=== PATIENT | female | born 1990 | race Caucasian/White ===

== ENCOUNTER 2022-12-10 08:34 | Outpatient (CLI) | payer BC, SELFPAY ==
--- NOTE | 2022-12-10 08:45 | CRLHL7_ITS ---
For Patients: As a result of the Cures Act, medical imaging exams and procedure reports are released immediately into your electronic medical record. You may view this report before your referring provider. If you have questions, please contact your health care provider. INDICATION: First trimester scan, establish dates. COMPARISON: None. TECHNIQUE: Real-time bonilla-scale imaging of the pelvis was performed. FINDINGS: Sonographic imaging demonstrates a single living intrauterine gestation. The embryo demonstrates a cardiac rate measuring 99 beats per minute. The embryo`s crown-rump length measurement of 0.36 cm corresponds to a gestational age of 6 weeks 0 days with a sonographic due date of 08/05/2023. There is a normal-appearing yolk sac. There are no gross abnormalities noted within the embryo at this early state of development. The gestational sac has a normal appearance. There is no evidence of a perigestational hemorrhage. The amount of fluid within the sac appears appropriate for gestational age. The cervix is closed. The myometrium appears normal. The ovaries are of normal size. There are no suspicious fluid collections noted in the cul-de-sac. IMPRESSION: Single living intrauterine with sonographic gestational age 6 weeks 0 days and sonographic due date 08/05/2023. heart rate is slightly low at 99 beats per minute. Follow-up in 2 weeks suggested. Dictated by Mtat Delatorre MD @ 12/10/2022 10:14:13 AM (Electronically Signed)
== END 2022-12-10 08:35 | disposition home or self-care (01) ==
LOC: US 08:36
PROVIDERS: PCP Physician Assistant Medical; Visit Provider Advanced Practice Midwife
DX: Z34.91 Encounter for supervision of normal pregnancy, unspecified, first trimester (principal); Z3A.08 8 weeks gestation of pregnancy
CPT/HCPCS: 76817

== ENCOUNTER 2022-12-24 07:22 | Outpatient (CLI) | payer BC, SELFPAY ==
--- NOTE | 2022-12-24 07:15 | CRLHL7_ITS ---
For Patients: As a result of the Cures Act, medical imaging exams and procedure reports are released immediately into your electronic medical record. You may view this report before your referring provider. If you have questions, please contact your health care provider. OB ULTRASOUND, 12/24/2022 INDICATION: Follow up first trimester obstetrical ultrasound. Low heart rate. TECHNIQUE: Transabdominal obstetrical ultrasound. COMPARISON: 12/10/2022. OSMIN by first US: 08/05/2022. GA: 8 w, 0 d. Previous US: Yes. OSMIN by US: 08/05/2022. GA: 6 w, 0 d. CRL: 1.7 cm. 8 w 1 d. OSMIN: 08/04/2023. FHR: 165 BPM. Gestational sac: 2.9 cm. Appears within normal limits. Yolk sac: 3.0 mm. Appears within normal limits. Right ovary: Within normal limits. 3.6 x 1.5 x 1.9 cm. Left ovary: Within normal limits. 3.8 x 2.1 x 1.9 cm. FINDINGS: Single living intrauterine with a crown-rump length of 1.74 cm corresponding to an 8 week 1 day gestation with a sonographic due date of 08/04/2023. heart rate 165 beats per minute. Normal yolk sac. Mild heterogeneous endometrium surrounding the gestational sac of uncertain and probably doubtful significance. The right ovary measures 3.6 x 1.5 x 1.9 cm. The left ovary measures 3.8 x 2.1 x 1.9 cm. IMPRESSION: Single living intrauterine with a crown-rump length corresponding to an 8 week 1 day gestation with a sonographic due date of 08/04/2023. heart rate 165 beats per minute. Normal yolk sac measuring 3 mm. MARQUITA ROPER M.D. Transcribed: 9:55 a.m. [email or web address] JR/Dictated by: Marquita Roper MD @ 12/24/2022 8:55:00 AM (Electronically Signed)
== END 2022-12-24 07:23 | disposition home or self-care (01) ==
LOC: US 07:23
PROVIDERS: PCP Physician Assistant Medical; Visit Provider Advanced Practice Midwife
DX: O36.8310 Maternal care for abnormalities of the fetal heart rate or rhythm, first trimester, not applicable or unspecified (principal); Z3A.08 8 weeks gestation of pregnancy
CPT/HCPCS: 76817; 86592; 86703; 86762; 86787; 86803; 86850; 86900; 86901; 87086; 87340

== ENCOUNTER 2023-03-18 08:17 | Outpatient (CLI) | payer BC, SELFPAY ==
--- NOTE | 2023-03-18 08:15 | CRLHL7_ITS ---
For Patients: As a result of the Century Cures Act, medical imaging exams and procedure reports are released immediately into your electronic medical record. You may view this report before your referring provider. If you have questions, please contact your health care provider. INDICATION: Evaluate anatomy. COMPARISON: 12/24/2022, 12/10/2022 TECHNIQUE: Real time bonilla scale imaging of the fetus was performed as well as color Doppler analysis of the umbilical vessels. FINDINGS: Sonographic imaging demonstrates a single living intrauterine gestation. Fetus demonstrates a regular cardiac rate of 171 beats per minute. Fetus has a variable position. The placenta lies left-sided without evidence of placenta previa. The edge of the placenta is located 5.8 cm from the internal cervical os. Amniotic fluid volume appears normal. Single deepest vertical pocket: 6.5 cm. The cervix is closed and measures 5.2 cm in length. The composite ultrasound gestational age is calculated at 21 weeks 2 days with an estimated sonographic due date of 07/27/2023. The estimated weight is 422 grams which lies at the greater than 97th %. The following biometric measurements were obtained: Biparietal diameter: 4.9 cm/20 weeks 5 days 80th% Head circumference: 18.6 cm/20 weeks 6 days 82nd% Abdominal circumference: 17.3 cm/22 weeks 2 days 96th% Femur length: 3.4 cm/20 weeks 4 days 64th% The HC/AC ratio measures: 1.08 range (1.06-1.24) On anatomic survey, there is a normal appearance of the cerebral ventricles, cavum septi pellucidi, cisterna magna and cerebellum. The nose, lips, and facial profile appear normal. The cervical, thoracic and lumbar spine are well visualized and appear normal. There is a normal four-chamber heart view and the left and right ventricular outflow tracts appear normal. The diaphragm and stomach appear normal. The kidneys and bladder also appear normal. There is a normal three-vessel cord and there is eccentric cord insertion site. The four extremities appear normal. IMPRESSION: Sonographic gestational age 21 weeks 2 days and sonographic due date 07/27/2023. Sonographic age 9 days ahead of the clinical age. Estimated weight greater than 97th percentile. Abdominal circumference 96th percentile. Normal anatomic survey. Dictated by Matt Delatorre MD @ 03/18/2023 1:12:32 PM (Electronically Signed)
== END 2023-03-18 08:18 | disposition home or self-care (01) ==
LOC: US 08:18
PROVIDERS: PCP Physician Assistant Medical; Visit Provider Obstetrics & Gynecology
DX: Z34.92 Encounter for supervision of normal pregnancy, unspecified, second trimester (principal); Z3A.21 21 weeks gestation of pregnancy
CPT/HCPCS: 76805

== ENCOUNTER 2023-05-13 08:41 | Outpatient (CLI) | payer BC, SELFPAY | END 2023-05-13 08:42 | disposition home or self-care (01) | LOC: NFLDREF 05-15 01:13 | PROVIDERS: PCP Physician Assistant Medical; Referring Provider Physician Assistant Medical; Visit Provider Advanced Practice Midwife | DX: Z34.83 Encounter for supervision of other normal pregnancy, third trimester (principal); Z3A.28 28 weeks gestation of pregnancy | CPT/HCPCS: 86592 ==

== ENCOUNTER 2023-06-25 10:53 | Outpatient (CLI) | payer BC, SELFPAY | END 2023-06-25 10:54 | disposition home or self-care (01) | PROVIDERS: PCP Physician Assistant Medical; Visit Provider Obstetrics & Gynecology | DX: O99.019 Anemia complicating pregnancy, unspecified trimester (principal) | CPT/HCPCS: 82728 ==

== ENCOUNTER 2023-07-09 10:52 | Outpatient (CLI) | payer BC, SELFPAY ==
--- NOTE | 2023-07-09 11:00 | CRLHL7_ITS ---
For Patients: As a result of the Century Cures Act, medical imaging exams and procedure reports are released immediately into your electronic medical record. You may view this report before your referring provider. If you have questions, please contact your health care provider. INDICATION: MEASURING LARGE FOR DATES COMPARISON: 03/18/2023 TECHNIQUE: Real time bonilla scale imaging of the fetus was performed. FINDINGS: Sonographic imaging demonstrates a single living intrauterine gestation. Fetus demonstrates a regular cardiac rate of 152 beats per minute. Fetus has a vertex position. The placenta lies posteriorly. Amniotic fluid volume appears upper limits of normal and there is a single deepest vertical pocket: 7.2 cm. EDWARDO 24.6 cm. The estimated weight is 3889gm which lies at the greater than 97th %. On the prior OB ultrasound exam dated 03/18/2023 the estimated weight was at the greater than 97th%. The biometric indices all lie within normal range. The HC/AC ratio measures 0.94 range (0.88-1.05). BPD/HC/AC greater than 97th percentile. [place] 43rd percentile. IMPRESSION: Sonographic gestational age 39 weeks 2 days and sonographic due date of 07/14/2023. Sonographic age 22 days ahead of the clinical age. Estimated weight greater than 97th percentile. Abdominal circumference, head circumference and BPD greater than 97th percentile. Upper limits of normal EDWARDO 24.6 cm. Dictated by Matt Delatorre MD @ 07/09/2023 12:02:32 PM (Electronically Signed)
== END 2023-07-09 10:53 | disposition home or self-care (01) ==
LOC: US 10:53
PROVIDERS: PCP Physician Assistant Medical; Visit Provider Obstetrics & Gynecology
DX: O36.63X0 Maternal care for excessive fetal growth, third trimester, not applicable or unspecified (principal); Z3A.39 39 weeks gestation of pregnancy
CPT/HCPCS: 76816; 87081; 87653

== ENCOUNTER 2023-07-11 09:30 | Outpatient (RCR) | payer BC, SELFPAY ==
--- NOTE | 2023-07-03 11:23 | URNOTE ---
REceived request for prior auth for Feraheme ([id number]). This has been approved 510mg/17ml vial for 2 doses, total 1020mg. 07/02/2023-09/30/2023. REf #[id number]
[2023-07-04 13:15] VITALS: BP 114/75; PULSE 66; RESP 18; TEMP 36.6; O2SAT 96
[2023-07-04] MEDS: ferumoxytoL 510 MG in 0.9 % SODIUM CHLORIDE 250 ml 250 ML 800 MG IVPB (13:39)
[2023-07-04 14:08] VITALS: BP 114/75; PULSE 86; RESP 16; TEMP 37.1; O2SAT 98
[2023-07-04 14:36] VITALS: BP 114/75; PULSE 93; RESP 16; TEMP 36.9; O2SAT 98
[2023-07-11 09:34] VITALS: BP 116/73; PULSE 97; RESP 18; TEMP 36.6; O2SAT 98
[2023-07-11] MEDS: ferumoxytoL 510 MG in 0.9 % SODIUM CHLORIDE 250 ml 250 ML 1068 MG IVPB (10:01)
[2023-07-11 10:27] VITALS: BP 118/84; PULSE 99; RESP 18; O2SAT 97
[2023-07-11 11:00] VITALS: BP 123/76; PULSE 57; RESP 16; TEMP 36.6; O2SAT 97
== END 2023-12-31 23:59 | disposition home or self-care (01) ==
LOC: CCIC 09:30
PROVIDERS: PCP Physician Assistant Medical; Referring Provider Physician Assistant Medical; Visit Provider Obstetrics & Gynecology
DX: D50.9 Iron deficiency anemia, unspecified (principal)
CPT/HCPCS: 96374; J7050; Q0138

== ENCOUNTER 2023-08-01 05:28 | Inpatient (IN) | payer BC, SELFPAY ==
[2023-08-01] VITALS (19 sets, daily range): BP systolic 110–148; BP diastolic 65–86; PULSE 70–86; RESP 16–18; TEMP 36.4–36.9; O2SAT 98–100; BMI 36.8
[2023-08-01 06:17] LABS: Hemoglobin* 10.9 gm/dL (12.0-16.0)
[2023-08-01] MEDS: CEFAZOLIN 2 GM INJ IVP (07:38)
[2023-08-01] MEDS: LACTATED RINGERS 1000 ML 1,000 ML 100 ML IV ×2 (07:57→08:54)
--- NOTE | 2023-08-01 08:00 | W.ANESCHARGE ---
Anesthesia Charges Start Date/Time Anesthesia Start Date: 08/01/23 Anesthesia Start Time: 07:31 Stop Date/Time Anesthesia Stop Date: 08/01/23 Anesthesia Stop Time: 09:32
[2023-08-01] MEDS: KETOROLAC 30 MG/ML inj IVP ×3 (08:56→21:00)
[2023-08-01] MEDS: SCOPOLAMINE 1 MG/3 DAY PATCH 1 PATCH TRANSDERMA (09:10)
--- NOTE | 2023-08-01 09:13 | PM.OBPRCCS ---
Procedure Date of procedure: 08/01/23 Pre-op diagnosis: 39 3/7 wks, suspected macrosomia, h/o C/S x1 Post-op diagnosis: same Procedure Done: Global Will [facility] bill your pro fee for this procedure?: Yes Blood Loss Measurement Type: QBL (350 mL) Bakri Used: No Surgeon: Yahaira Lew MD Anesthesia type: Spinal Findings: Extensive adhesions between omentum and peritoneum anteriorly. Otherwise normal-appearing uterus, ovaries, and fallopian tubes. Live-born female , cephalic presentation, weight 10 lb 12 oz, Apgars 7 and 9 at 1 and 5 minutes respectively. Procedure Description: After obtaining informed consent, the patient was taken to the operating room where spinal anesthesia was obtained and found to be adequate. She was prepared and draped in the normal sterile fashion in the dorsal supine position with a leftward tilt. A Pfannenstiel skin incision was made with a scalpel in an elliptical fashion above and below the line of the patient's previous Pfannenstiel scar. The scar was grasped with Allis clamps, elevated, and excised. The incision was carried down to the underlying layer of fascia with the Bovie. The fascia was incised in the midline and the incision extended laterally. The superior and inferior aspects of the fascial incision were grasped with Kem clamps, elevated and the underlying rectus muscles dissected off sharply and with electrocautery. [This dissection took an increased amount of time given the omental adhesions, which were serially clamped with 2 Latricia clamps, transected, and suture ligated with 3-0 Vicryl. The rectus muscles were then in the midline. The Kasi O retractor was then placed into the incision. The lower uterine segment was then incised in a transverse fashion with the scalpel. Upon entry into the uterus, clear amniotic fluid was noted. The uterine incision was extended laterally with blunt finger fractionation. The infant's head was delivered atraumatically, followed by the remainder of the 's body. The nose and mouth were suctioned with the bulb suction. The cord was doubly clamped and cut, and the was handed off the field for evaluation. The placenta was delivered spontaneously with umbilical cord traction and fundal massage. The uterus was cleared of all clots and debris. The uterine incision was reapproximated in a running locking fashion with a 0 chromic suture. A 2nd layer of the same suture was used to imbricate in horizontal fashion. Two additional figure of X sutures of 0 chromic were used along the right aspect of the hysterotomy incision for hemostasis. The uterus was then exteriorized. Both fallopian tubes were identified to their fimbrial ends. The left fallopian tube was elevated with Lamar clamps, and fully excised using the handheld LigaSure device. Excellent hemostasis was observed. The right fallopian tube was elevated with [place] clamps and removed in a similar fashion. Excellent hemostasis was visualized. The uterus was returned to the abdomen. The gutters were irrigated and suctioned. All instruments and retractors were removed. Additional omentum adhesions to the peritoneum were isolated, doubly clamped with Latricia clamps, transected, and suture ligated with 3-0 Vicryl until the omentum was completely free. The anterior peritoneum was reapproximated in a running fashion with a 3-0 Vicryl suture. The subfascial tissues were carefully inspected and hemostasis assured. The fascia was reapproximated in a running fashion with a looped 0 Maxon suture. The subcutaneous tissues were copiously irrigated. Hemostasis was assured. The subcutaneous fat layer was reapproximated with interrupted sutures of 3-0 plain gut. The skin was closed in a subcuticular fashion with 4-0 Vicryl. Exofin surgical glue and dressing were applied. A TAP block was administered by Anesthesia at the conclusion of the procedure. The patient tolerated the procedure well, though with some nausea. Sponge, lap, needle, and instrument counts were reported as correct x2. The patient was taken to the recovery room, awake, and in stable condition. She did receive 2 grams of IV Ancef preoperatively and 30 mg of IV Toradol at the conclusion of the procedure. Complications: None. Condition: stable Disposition: floor OB Delivery Proc Additional Procedures Tubal Ligation at the time of : Yes (Bilateral salpingectomies)
--- NOTE | 2023-08-01 09:39 | W.ANESCHARGE ---
Anesthesia Charges Start Date/Time Anesthesia Start Date: 08/01/23 Anesthesia Start Time: 07:31 Stop Date/Time Anesthesia Stop Date: 08/01/23 Anesthesia Stop Time: 09:32
--- NOTE | 2023-08-01 09:39 | W.PM.NB ---
Nerve Block Nerve Block Time Seen by Provider: :24 Date Seen: 08/01/23 Type of block requested by surgeon for post-operative analgesia: TAP Side: bilateral Time out performed: Yes Verification of patient name: Yes Verification of date of : Yes Site marking: site marked Name of person performing procedure: Mike Continuous monitoring Was continuous monitoring of O2 sat, B/P, environmental monitoring specialist, recorded every 15 minutes?: Yes Procedure Checklist: sterile prep, needles and gloves Ultrasound guided. Images saved: Yes Medications given in 5ml increments after negative aspiration: Marcaine %: 0.25 mL: 30 Needle gauge: 20 and Exparel mL: 10 Patient tolerated procedure well: Yes Additional comments: Needle noted adjacent to nerve Block Charges Block Charge (with Pro Fee): TAP Bilateral Use of Ultrasound Machine for Block: Yes- US Guidance/pain block
[2023-08-01] MEDS: ACETAMINOPHEN 500 MG TABLET 1000 MG PO ×2 (10:17→18:53)
[2023-08-01] MEDS: OXYCODONE 5 MG TABLET PO ×3 (11:00→22:38)
[2023-08-01] MEDS: DOCUSATE SODIUM 100 MG CAPSULE PO (22:12)
[2023-08-02 00:11] VITALS: BP 113/72; PULSE 81; RESP 16; TEMP 36.5; O2SAT 97
[2023-08-02] MEDS: ACETAMINOPHEN 500 MG TABLET 1000 MG PO ×4 (00:34→20:53)
[2023-08-02] MEDS: KETOROLAC 30 MG/ML inj IVP ×2 (03:13→08:59)
[2023-08-02 04:10] VITALS: BP 109/69; PULSE 71; RESP 16; TEMP 36.9; O2SAT 97
[2023-08-02 07:19] LABS: Hemoglobin* 10.8 gm/dL (12.0-16.0)
[2023-08-02 08:00] VITALS: BP 102/62; PULSE 83; RESP 16; TEMP 36.5; O2SAT 97
[2023-08-02] MEDS: OXYCODONE 5 MG TABLET PO ×3 (08:20→20:53)
[2023-08-02] MEDS: DOCUSATE SODIUM 100 MG CAPSULE PO ×2 (08:21→08:22)
--- NOTE | 2023-08-02 11:35 | PM.OBPNVD1 ---
OB - PN:Subj Subjective Time Seen by Provider: 09:30 Date Seen: 08/02/23 Narrative: Overnight patient had no complaints. Her pain is controlled on oral pain medications - having soreness with ambulation. She is tolerating a regular diet. She has not passed flatus. She is ambulating without difficulty. Lochia is scant. She is urinating without wren. Patient denies chest pain, SOB, n/v, headache, RUQ pain, vision changes, dizziness. OB - PN: Obj Exam Physical Exam: Vital signs: Temp Pulse Resp BP Pulse Ox O2 Del Method 97.7 F 83 16 102/62 97 Room Air 08/02/23 08:00 08/02/23 08:00 08/02/23 08:00 08/02/23 08:00 08/02/23 08:00 08/02/23 08:00 Narrative: Physical exam: General: No acute distress Psych: Alert and oriented x3, full affect HEENT: Normocephalic, atraumatic Neck: No cervical adenopathy, no thyromegaly Heart: Regular rate and rhythm, no murmur rub or gallop Lungs: Clear to auscultation bilaterally Abdomen: Normoactive bowel sounds, soft, appropriately tenderness, No rebound, or guarding. Patient does have moderate abdominal distension - has not passed gas since prior to surgery. Incision: Dressing clean, dry and intact Skin: No lesions or rashes Lower extremities: Trace bilateral lower extremity Pelvic exam: Scant lochia on pad Urinary Catheter Management: Urethral: Cath placed during this visit: yes, but has since been removed by the nurse Reason for continuing: surgical procedure Insertion date: 08/01/23 Insertion time: 07:43 Removal date: 08/01/23 Removal time: 16:10 OB - PN: Obj Data Labs Labs: Laboratory Results - last 24 hr 08/02/23 06:41 Hgb 10.8 L OB - PN: A/P Delivery Assessment and Plan (1) Anemia affecting : Status: Acute (2) History of delivery: Status: Acute Plan Postoperative Review: - Admitted for: Scheduled surgery - Surgical procedure: Repeat low transverse delivery - Skin incision: Pfannenstiel - Closure: Sutures - Quantitative blood loss: 350 mL - Intraoperative Complications: none - Urine output: 0.21 cc/kg/hr - Preop Hgb: 10.9 - Postop Hgb: 10.8 Postoperative care: - Diet: Advance as tolerated - Fluid: Encourage oral intake - Activity: Encourage ambulation and incentive spirometry - Pain: Tylenol, ibuprofen, and oxycodone - DVT prophylaxis: SCDs and TEDs when not ambulating Baby's Status - Fetus: 7, 9 - 10lb 12oz, female - Location: bedside Dispo: Patient is POD#1. Need the following milestones: pass gas/ ambulate more. Anticipate discharge POD#2.
[2023-08-02 15:30] VITALS: BP 105/70; PULSE 85; RESP 16; TEMP 36.7; O2SAT 98
[2023-08-02] MEDS: SIMETHICONE 80 MG TAB.CHEW PO (18:46)
[2023-08-02] MEDS: IBUPROFEN 600 MG TABLET PO (18:46)
[2023-08-03 01:15] VITALS: BP 104/67; PULSE 89; RESP 16; TEMP 36.7; O2SAT 96
[2023-08-03] MEDS: IBUPROFEN 600 MG TABLET PO ×3 (01:23→13:10)
[2023-08-03] MEDS: ACETAMINOPHEN 500 MG TABLET 1000 MG PO ×2 (03:02→09:00)
[2023-08-03] MEDS: OXYCODONE 5 MG TABLET PO ×2 (03:02→09:00)
[2023-08-03 07:38] VITALS: BP 114/77; PULSE 76; RESP 16; TEMP 36.6; O2SAT 97
[2023-08-03] MEDS: DOCUSATE SODIUM 100 MG CAPSULE PO (09:00)
[2023-08-03] MEDS: SIMETHICONE 80 MG TAB.CHEW PO (09:00)
--- NOTE | 2023-08-03 09:11 | PM.OBDSVD1 ---
DS: Providers Provider Date Seen: 08/03/23 Date of admission: 08/01/23 05:28 Primary care physician: Fang Perea PA-C Admitting Clinician: Yahaira Lew MD Attending Physician on discharge: Naima Vanessa APRN, MIN Date of Discharge: 08/03/23 DS: Diagnosis Discharge Diagnosis (1) care and examination immediately after delivery: Status: Acute (2) Lactating mother: Status: Acute (3) Hemorrhoids during : Status: Acute Exam Narrative: Exam Narrative: GENERAL APPEARANCE:? normal affect, alert, no distress MOOD:? appropriate CHEST:? clear to auscultation HEART:? regular rate and rhythm ABDOMEN:? soft, non-tender the uterine fundus is at Umbilicus, Midline and is appropriate for the stage of recovery. PERINEUM:? mild edema of the perineum. EXTREMITIES:? normal and trace edema Incision: Healing well, no surrounding erythema, abnormal induration or discharge Const: Vital Signs, click to edit/add: Vital Signs - 24 hr 08/02/23 15:30 08/03/23 01:15 08/03/23 07:38 Temperature 98.0 F 98.1 F 97.9 F Pulse Rate [Pulse Oximeter] 85 89 76 Respiratory Rate 16 16 16 Blood Pressure [Le ft Arm] 105/70 104/67 114/77 Pulse Oximetry 98 96 97 Oxygen Delivery Me thod Room Air Room Air Room Air OB - DS: Summary Hospital Course Hospital Course: Paris is a 32 year old G 2 P 2 at 39 3/7 weeks gestation that was admitted to the Center on 08/01/23 for repeat section. She had an uncomplicated delivery. She delivered a viable female . The patient feels well. ?The pain is well controlled with current medications. ?She has no new complaints. ?She is breast feeding and reports things are going well. the patient has done well.? Vitals have been stable.? She has remained afebrile.? Has a good appetite, is tolerating a general diet. ?She is voiding without difficulty.? She is passing gas and has not had a bowel movement.? She is ambulating and denies any dizziness.? Has small amount of rubra lochia. Problems: none plan: Discharge home with baby. Follow up in 2 weeks and 6 weeks. , may see if needed Hgb 10.8. Peripartum Data delivery method: Repeat Section Laceration description: None Procedures: Procedures Operation Date: 08/01/23 07:15 Actual Procedure Side Surgeon p Repeat Section, Tubal Ligation Bilateral Yahaira Lew MD complications: none Infant Gender: Female Discharge Plan: Home Status at Discharge Functional status at discharge: independent ambulation Overall status at discharge: patient is progressing back to baseline Time Spent with Patient Time attestation: Total time spent providing and/or coordinating discharge services: Discharge Plan Discharge Disposition: Home, Self-Care Date of Admission: 08/01/23 05:28 Attending Provider on Discharge: Naima Vnaessa Primary Care Provider: Fang Perea Condition: Stable Anticipated Discharge Date/Time: 08/03/23 12:00 Discharge Medications: New acetaminophen 500 mg Tablet 1,000 mg PO Q6H PRN (Reason: Pain) Qty: 0 0RF docusate sodium 100 mg Capsule 100 mg PO DAILY Qty: 90 0RF ibuprofen 600 mg Tablet 600 mg PO Q6H PRN (Reason: Pain) Qty: 60 0RF oxycodone 5 mg Tablet 5 - 10 mg PO Q4H PRN (Reason: Pain) Qty: 20 0RF Continued prenat.vits,liliam,yhf-ijhn-sctao Tablet 1 tab PO QDAY hydrocortisone acetate [Anusol-HC] 25 mg suppository 25 mg NC QDAY Qty: 24 0RF hydrocortisone 2.5 % cream with perineal applicator 1 applic NC BID PRN (Reason: hemorrhoids) Qty: 30 0RF lidocaine HCl-hydrocortison ac 3 %-2.5 % (7 gram) gel 1 applic NC BID PRN (Reason: hemorrhoids) Qty: 7 1RF Rx Instructions: Do not use daily for more than 7 days at a time. Discharge Orders: Discharge Order (Routine); Ordered 08/03/23 Ordered By: Naima Vanessa Patient Education: OB Over the Counter Medication Information, OB /Breast Feeding Additional Instructions: Discharge instructions were reviewed with the patient including signs and symptoms of infection and home going medications Lifting Restrictions: 20 pounds for 6 weeks No not submerge incision under water X 2 weeks? Nothing vaginally for 6 weeks: no tampons or intercourse Do not drive while taking narcotic pain medication(s) Off Work or School for 8 weeks 2-week visit: incision check, discuss infant feeding concerns, review control options and screen for anxiety/depression. 6-week visit for an annual exam. consultation services are available to all mothers and babies for the first year after delivery.? To make an appointment, please call [phone]. Activity Level: Activity as Tolerated Discharge Diet: Regular Follow Up Appointments: [facility] [Provider Group] Forms: [employer] Info Instructions
== END 2023-08-03 14:47 | disposition home or self-care (01) | DRG 540 ==
PROVIDERS: Admitting Provider Obstetrics & Gynecology; PCP Physician Assistant Medical; Visit Provider Obstetrics & Gynecology
PROC: 10D00Z1 Extraction of Products of Conception, Low, Open Approach (ICD-10-PCS; CPT 59514; principal; 2023-08-01 07:15)
DX: O34.211 Maternal care for low transverse scar from previous cesarean delivery (principal); Z3A.39 39 weeks gestation of pregnancy; Z37.0 Single live birth; Z30.2 Encounter for sterilization; O36.63X0 Maternal care for excessive fetal growth, third trimester, not applicable or unspecified; O22.43 Hemorrhoids in pregnancy, third trimester; O99.013 Anemia complicating pregnancy, third trimester; O99.892 Other specified diseases and conditions complicating childbirth; N73.6 Female pelvic peritoneal adhesions (postinfective); G89.18 Other acute postprocedural pain
CPT/HCPCS: 01961; 36415; 58611; 64488; 76942; 85018; 86850; 86900; 86901; 88302; A9270; C9290; J0665; J0690; J1885; J2371; J2405; J2590; J7120